=== PATIENT | female | born 1940 | race Caucasian/White ===

== ENCOUNTER → 2018-05-13 | Day surgery (SDC) | payer OTHER, MEDICARE ==
[~2018-05-13] VITALS: Ht 162.6 cm; Wt 90.7 kg
[~2018-05-13] MED LIST: ACCUPRIL40 M1 PO; ALBUTEROL2.5 MG/3 M INH/SOL; ALPRAZOLAM0.25 M1 PO; AMLODIPINE BESY10 M1 PO; BROVANA15 MCG/21 INH; CALCIUM 500 +1 EAC5 PO; CHERATUSSIN AC118 M1 PO; FLONASE ALLERG9.9 ML NAS; HYDROCHLOROTHIA25 M1 PO; METFORMIN HCL500 M3 PO; MULTIVITAMINS1 EAC9 PO; PROAIR HFA8.5 GM INH; PROBIOTIC1 EACH PO; SPIRIVA18 MCG INH; VITAMIN B-121000 MC3 PO; VITAMIN D1000 UNIT PO
--- NOTE | 2018-05-13 15:02 | Operative Report ---
Operative/Inv Procedure Report Surgery Date: 05/13/18 Name of Procedure: TURBT Pre-Operative Diagnosis: Bladder cancer, rule out recurrence Post-Operative Diagnosis: Same Estimated Blood Loss: scant Surgeon/Medical Transport Specialist: Neal Huddleston MD Anesthesia: general endotracheal tube Operative/Procedure Note Note: Patient has history of bladder cancer, and return for follow-up recently. 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 Reviewed alternatives at length, she was agreeable undergo resection /biopsy. She was made aware of the complications/implications thereof including but not exclusive of , heart attack, stroke, hemorrhage requiring transfusion, potential bladder damage/perforation. She is aware that this may not be a malignancy, though if it is a malignancy may require further treatment/ evaluation. Procedures as follows-after uneventful induction of general anesthesia patient was placed in the thigh position and prepped and draped in sterile fashion. At this point a 25 [place] scope was passed per urethra into the bladder. Thorough inspection of the bladder revealed 2 lesions in the right posterior lateral wall each slightly greater than 5 mm in diameter. Both lesions were grasped with cold cup biopsy forceps, and removed in their entirety. This yielded a good biopsy including bladder wall. All areas of resection were cauterized using Bugbee, no visible retained tumor was noted. Upon completion of this the cystoscope was removed he flexes noted to be entirely clear, and the patient was awakened and returned to recovery room in good condition.
== END ==
LOC: STS 01:31
DX: C67.8 Malignant neoplasm of overlapping sites of bladder (principal); I10 Essential (primary) hypertension; E11.9 Type 2 diabetes mellitus without complications; Z79.84 Long term (current) use of oral hypoglycemic drugs; J44.9 Chronic obstructive pulmonary disease, unspecified; Z87.891 Personal history of nicotine dependence; Z86.14 Personal history of Methicillin resistant Staphylococcus aureus infection